=== PATIENT | female | born 1965 | race Caucasian/White ===

== ENCOUNTER 2017-10-21 18:13 | Emergency (ER) | payer OTHER ==
[~2017-10-21 18:13] MED LIST: AFRIN PUMPMIST15 ML NASB; ALBUTEROL1.25 MG/3 INH; BACTRIM DS 8001 TAB PO; MEDROL4 M2 PO; PREDNISONE 20MG20 MG PO; PSEUDOEPHEDRINE30 MG PO; ROBAXIN-750750 M1 PO; TESSALON PERLE100 MG PO; TYLENOL WITH C1 EACH PO
[2017-10-21 18:15] VITALS: BP 161/80
--- NOTE | 2017-10-21 18:27 | ED UPPER/LOWER EXTREMITY COMPL ---
History of Present Illness General Chief Complaint: Lower Extremity Problems Stated Complaint: L LEG PAIN Source: patient Exam Limitations: no limitations Vital Signs & Intake/Output Vital Signs & Intake/Output Vital Signs Date Time Temp Pulse Resp B/P B/P Pulse O2 O2 Flow FiO2 Mean Ox Delivery Rate 10/21 1815 98.1 91 16 161/80 97 Room Air Allergies Coded Allergies: MDX - Shrimp (SHRIMP) (Severe, THROAT CLOSES UP 06/21/15) MDX - Azithromycin (From ZITHROMAX Z-GIGI) (Intermediate, SEVERE INTESTINAL PAIN 06/21/15) MDX - Nitrofurantoin (From MACRODANTIN) (UNKNOWN 06/21/15) MDX - Penicillin (PENICILLIN) (UNKNOWN 06/21/15) MDX - Aspirin (ASPIRIN) ("THEY SAID MY STOMACH BLED" 06/21/15) Uncoded Allergies: MUSHROOMS (Severe, THROAT CLOSES 06/21/15) TREE NUTS (Severe, THROAT CLOSES 06/21/15) Reconcile Medications Albuterol Sulfate (Albuterol Sulfate Nebulizer Soln) 1.25 MG/3 ML ANEUDY 1 UNIT INH Q4P PRN wheezing Benzonatate (Tessalon Perle) 100 MG SGL 1 CAP PO TID PRN COUGH Methocarbamol (Robaxin-750) 750 MG TABLET 1 TAB PO TID PRN SPASM Methylprednisolone. (Medrol) 4 MG TAB.DS.PK 1 DP PO AD INFLAMMATION 6 on day 1 then reduce by one tablet daily until gone OXYMETAZOLINE HCL (Afrin) 15 ML SPR 2 SPRAY NASB BID sinusitis Prednisone 20 MG TAB 1 TAB PO BID BRONCHOSPASM PSEUDOEPHEDRINE HCL (Pseudoephedrine HCl) 30 MG TAB 1-2 TAB PO Q6P PRN sinusitis Sulfamethoxazole/Trimethopri (Bactrim Ds 800 MG-160 MG) 1 TAB TAB 1 TAB PO BID sinusitis Tylenol With Codeine (Tylenol With Codeine #3 Tablet) 1 EACH TABLET 1-2 TAB PO Q6H PRN PAIN Triage Note: PT FELT A POP IN HER LEFT CALF WHILE WALKING TODAY, NOW EXPERIENCING BURNING PAIN TO LOWER LEG AND BEHIND LEFT KNEE. Triage Nurses Notes Reviewed? yes Onset: Abrupt Duration: constant Timing: recent history Severity: severe Severity Numbers: 7 HPI: Patient is a 52-year-old female who presents to emergency room with concerns for 2 hours prior to arrival while ambulating PUSHING OFF WITH HER LEFT foot had acute onset of left calf severe pain Patient states that ambulation since is made worse. Denies any knee or ankle pain denies any shortness of breath, leg swelling. No medications given prior to arrival. (Lexx Cortez) Past History Travel History Traveled to [place] past 21 day No Medical History Any Pertinent Medical History? see below for history Neurological: NONE EENT: allergies Cardiovascular: NONE Respiratory: NONE Hepatic: cholelithiasis Renal: NONE Musculoskeletal: NONE Psychiatric: NONE Endocrine: NONE Blood Disorders: NONE Surgical History Surgical History: non-contributory Psychosocial History What is your primary language [place] Tobacco Use: Current Daily Use Daily Tobacco Use Amount/Type: => 5 Cigarettes daily Family History Hx Contributory? No (Lexx Cortez) Review of Systems Review of Systems Constitutional: Reports: no symptoms. EENTM: Reports: no symptoms. Respiratory: Reports: no symptoms. Cardiovascular: Reports: no symptoms. Gastrointestinal/Abdominal: Reports: no symptoms. Genitourinary: Reports: no symptoms. Musculoskeletal: Reports: see HPI, muscle stiffness. Skin: Reports: no symptoms. Neurological/Psychological: Reports: no symptoms. Hematologic/Endocrine: Reports: no symptoms. Immunological: Reports: no symptoms. All Other Systems: Reviewed and Negative (Lexx Cortez) Physical Exam Physical Exam General Appearance: no apparent distress, alert, comfortable Head: atraumatic Eyes: Bilateral: normal appearance. Ears, Nose, Throat: hearing grossly normal Neck: normal inspection Cardiovascular/Respiratory: normal peripheral pulses, regular rate/rhythm Peripheral Pulses: 3+ dorsalis pedis (L) Neurologic/Tendon: normal sensation, normal motor functions, normal tendon functions, responds to pain, no evidence tendon injury, no pulse deficit Skin: intact, normal color, warm/dry Comments: Left knee normal inspection nontender. Active range of motion Left ankle normal inspection nontender full active range of motion with pain with dorsiflexion and plantar flexion 5 out of 5 strength left lower extremity myotomes and dermatomes intact (Lexx Cortez) Progress Differential Diagnosis: arterial insufficiency, compartment syndrome, contusion, dislocation, DVT, fracture, gout, septic arthritis, sprain, tendon injury Plan of Care: Orders Procedure Date/time Status Durable Medical Equipment 10/21 1825 Active Patient denies any mechanism injury however due to history of present illness and exam findings patient has concerns of left gastrocnemius strain concerns of dvt at this time. Patient was given crutches for weightbearing as tolerated. (Lexx Cortez) Departure Departure Disposition: HOME OR SELF CARE Condition: Stable Clinical Impression Primary Impression: Gastrocnemius strain, left Referrals: [facility],Manuel Ellis DO,Steven Lema (PCP/Family) Additional Instructions: As discussed begin to ice the area 20 minutes every 2 hours, begin Motrin or Tylenol for pain and inflammation, begin using the crutches until YOU can walk without pain. If no better in one week follow-up with orthopedic DR BROJAS. If symptoms worsen return to emergency room Departure Forms: Customer Survey General Discharge Information (Lexx Cortez) PA/BLENDING COORDINATOR Co-Sign Statement Statement: ED Attending supervision documentation- [] I saw and evaluated the patient. I have also reviewed all the pertinent lab results and diagnostic results. I agree with the findings and the plan of care as documented in the PA's/BLENDING COORDINATOR's documentation. [x] I have reviewed the ED Record and agree with the PA's/BLENDING COORDINATOR's documentation. [] Additions or exceptions (if any) to the PAs/BLENDING COORDINATOR's note and plan are summarized below: [] (Simon Alas DO)
== END 2017-10-21 18:49 ==
LOC: ERH 18:13
DX: S86.112A Strain of other muscle(s) and tendon(s) of posterior muscle group at lower leg level, left leg, initial encounter (principal); X58.XXXA Exposure to other specified factors, initial encounter; Y92.9 Unspecified place or not applicable; Y93.9 Activity, unspecified